=== PATIENT | female | born 1975 | race Caucasian/White ===

== ENCOUNTER 2020-03-19 13:11 | Outpatient (CLI) | payer BC, SELFPAY ==
--- NOTE | ~2020-03-19 | DEXA_ITS ---
BMD(1) Young-Adult(2) Age-Matched(3) Region (g/cm2) T-score Z-score WHO Classification L1 1.443 2.5 1.7 Normal L2 1.473 2.2 1.4 Normal L3 1.434 1.7 0.9 Normal L4 1.448 1.8 1.0 Normal L1-L4 1.450 2.1 1.3 Normal Trend: L1-L4 Change vs Change vs Measured Age BMD(1) Baseline Previous Date (years) (g/cm2) (%) (%) 03/19/2020 44.2 1.450 baseline - 1 - Statistically 68% of repeat scans fall within 1SD (+- 0.010 g/cm2 for AP Spine L1-L4) 2 - [place] (Combined NHANES (ages 20-30) / Biocontrol (ages 20-40)) AP Spine Reference Population (v112) 3 - Matched for Age, Weight (females 25-100 kg), Ethnic 11 - World Health Organization - Definition of Osteoporosis and Osteopenia for Women: Normal = T-score at or above -1.0 SD; Osteopenia = T-score between -1.0 and -2.5 SD; Osteoporosis = T-score at or below -2.5 SD; (WHO definitions only apply when a young healthy Women reference database is used to determine T-scores.) Printed: 03/19/2020 1:42:51 PM (13.60)76:3.00:50.00:12.0 0.00:9.78 0.60x1.05 24.9:%Fat=33.8% 0.00:0.00 0.00:0.00 Filename: [id number] Scan Mode: Standard;OneScan 37.0 Enish [id number] BMD(1) Young-Adult(2,7) Age-Matched(3) Region (g/cm2) T-score Z-score WHO Classification Neck Left 1.020 -0.1 -0.1 Normal Right 1.070 0.2 0.3 Normal Mean 1.045 0.1 0.1 Normal Difference 0.050 0.4 0.4 - Total Left 1.064 0.5 0.2 Normal Right 1.065 0.5 0.2 Normal Mean 1.065 0.5 0.2 Normal Difference 0.000 0.0 0.0 - Hip Qulin Length Comparison (mm) (Right = 112.1 mm) (Mean = 107.0 mm) (Left = 112.4 mm) Trend: Total Mean Change vs Change vs Measured Age BMD(1) Baseline Previous Date (years) (g/cm2) (%) (%) 03/19/2020 45.2 1.065 baseline - 1 - Statistically 68% of repeat scans fall within 1SD (+- 0.010 g/cm2 for DualFemur Total) 2 - [place] (Combined NHANES (ages 20-30) / Biocontrol (ages 20-40)) Femur Reference Population (v112) 3 - Matched for Age, Weight (females 25-100 kg), Ethnic 7 - DualFemur Total T-score difference is 0.0. Asymmetry is None. 11 - World Health Organization - Definition of Osteoporosis and Osteopenia for Women: Normal = T-score at or above -1.0 SD; Osteopenia = T-score between -1.0 and -2.5 SD; Osteoporosis = T-score at or below -2.5 SD; (WHO definitions only apply when a young healthy Women reference database is used to determine T-scores.) Printed: 03/19/2020 1:42:52 PM (13.60); Filename: [id number]; Right Femur; 20.2:%Fat=33.3%; Neck Angle (deg)= 58; Scan Mode: Standard 37.0 uGy; Left Femur; 20.1:%Fat=29.6%; Neck Angle (deg)= 60; Scan Mode: Standard 37.0 uGy [employer] [id number] Dear Juan Klein, Your patient Millie Oneill completed a BMD test on 03/19/2020 using the [employer] DXA System (analysis version: 13.60) manufactured by [employer]. The following summarizes the results of our evaluation. PATIENT BIOGRAPHICAL: Name: Millie Oneill Date: 1975 Height: 65.0 in. Gender: Female Exam Date: 03/19/2020 Weight:
== END 2020-03-19 13:12 | disposition home or self-care (01) ==
LOC: CHSIMG 13:14
PROVIDERS: PCP Family Medicine; Visit Provider Internal Medicine Rheumatology
DX: Z78.0 Asymptomatic menopausal state (principal)
CPT/HCPCS: 77080

== ENCOUNTER 2020-10-18 21:33 | Emergency (ER) | payer BC, SELFPAY ==
--- NOTE | ~2020-10-18 | XR_ITS ---
EXAMINATION: XR chest 2V DATE: 10/18/2020 22:10 INDICATION: Asthma presenting with shortness of breath TECHNIQUE: PA and lateral views of the chest were obtained. COMPARISON: None FINDINGS: The lungs are clear with no focal airspace opacities, pulmonary edema, pleural effusion or pneumothor ax. The cardiomediastinal silhouette is normal. Moderate thoracic spondylosis and mild kyphosis with minimal anterior wedging of a few mid thoracic vertebral bodies. IMPRESSION: 1. No acute cardiopulmonary disease. Reviewed, dictated and finalized at location A.
[2020-10-18 21:40] VITALS: BP 138/85; PULSE 106; RESP 20; TEMP 36.3; O2SAT 95
[2020-10-18 22:00] VITALS: PULSE 106; RESP 24; O2SAT 94
--- NOTE | 2020-10-18 22:04 | ED.ASTHMA ---
HPI - Asthma General Chief Complaint: Asthma Stated Complaint: URI Time Seen by Provider: 10/18/20 21:55 Source: patient Mode of arrival: ambulatory Limitations: no limitations History of Present Illness HPI Narrative: Patient comes in with mild shortness of breath. She has had no fever or chills. She states she has been vaccinated for COVID. She got a flu vaccine. She states she has had an increasing cough for the last 2 days. This has been hyperactive and nonproductive and wearing her how. She has used her nebulizer and then using horse her inhaler of albuterol more than normal. Because this has continued she comes in. Her inhaler at home did not help. She is scheduled to see Dr. Calzada on of next week MD complaint: shortness of breath Severity: moderate Context: none known Associated symptoms: dry cough Related Data Home Medications Medication Instructions Recorded Confirmed albuterol sulfate [Ventolin HFA] 2 puff INHALATION BID 10/18/20 10/18/20 citalopram 10 mg PO DAILY 10/18/20 10/18/20 folic acid 1 mg PO DAILY 10/18/20 10/18/20 methotrexate sodium 7.5 mg PO BID 10/18/20 10/18/20 montelukast 10 mg PO DAILY 10/18/20 10/18/20 omeprazole 20 mg PO DAILY 10/18/20 10/18/20 Allergies Allergy/AdvReac Type Severity Reaction Status Date / Time neomycin Allergy Unknown Verified 10/18/20 22:07 Review of Systems Constitutional: Constitutional: Reports no additional constitutional complaints Eyes: Eyes: Reports no additional eye complaints ENT: Reports system reviewed and no additional complaints, except as documented Cardiovascular: Cardiovascular: Reports no additional cardiovascular complaints Respiratory: Respiratory: Reports no additional respiratory complaints Gastrointestinal: Gastrointestinal: Reports no additional gastrointestinal complaints Genitourinary: Genitourinary: Reports no additional female genitourinary complaints Musculoskeletal: Musculoskeletal: Reports no additional musculoskeletal complaints Integumentary/Breasts: Skin/Breast: Reports system reviewed and no additional complaints, except as docu Neurologic: Reports system reviewed and no additional complaints, except as documented Psychiatric: Psychiatric: Reports no additional psychiatric complaints Endocrine: Endocrine: Reports no additional endocrine complaints Hematologic/Lymphatic: Hematologic/Lymphatic: Reports no additional hematologic/lymphatic complaints Allergic/Immunologic: Allergic/Immunologic: Reports no additional allergic/immunologic complaints PMFSH Past Medical History Medical History (Updated 10/19/20 @ 00:01 by Rafael Valiente) Asthma Surgical History Surgical History (Updated 10/18/20 @ 22:45 by Juan Torres MD) History of ankle surgery Family History Family History (Updated 10/18/20 @ 22:47 by Juan Torres MD) Father Malignant neoplasm of prostate Mother Asthma Breast cancer Cerebrovascular accident Social History Social History (Updated 10/18/20 @ 22:47 by Juan Torres MD) Smoking status: Never smoker Alcohol intake: never Living arrangements: with family Sexual Orientation (if Verbalized by the Patient): Straight or Heterosexual Exam Const: General: no acute distress HENMT: Head: normal to inspection Ears: external ears normal and TM's normal bilaterally General nose exam: Normal external nose present and Nasal discharge present (clear thin) Face and sinus: normal facial exam Mouth: Yes Normal oral and palatal mucosa present Throat: posterior oropharynx normal Eyes: Conjunctivae: conjunctivae normal Neck: Neck: normal visual inspection and no lymphadenopathy Chest: Chest palpation & inspection: normal inspection of the chest Resp: Effort & Inspection: normal respiratory effort Other: initially she had decreased breath sounds, she started moving much better air after she was given a nebulizer, and her lungs appeared clear. Cardio: Rate: re
[2020-10-18] MEDS: DEXAMETHASONE 4 MG TABLET 12 MG PO (22:12)
[2020-10-18] MEDS: BENZONATATE 100 MG CAPSULE 200 MG PO (22:12)
[2020-10-18] MEDS: IPRATROPIUM 0.5 MG/ALBUTEROL SULFATE 2.5 MG AMPUL.NEB 3 ML INHALATION (22:12)
[2020-10-18 22:23] VITALS: PULSE 98; RESP 20; O2SAT 94
[2020-10-18 22:40] VITALS: BP 128/75; PULSE 97; RESP 20; TEMP 36.1; O2SAT 94
== END 2020-10-18 22:45 | disposition home or self-care (01) ==
PROVIDERS: Emergency Provider Emergency Medicine; PCP Family Medicine
DX: J40 Bronchitis, not specified as acute or chronic (principal)
CPT/HCPCS: 71046; 73140; 94640; 99283; A9270; J8540

== ENCOUNTER 2021-07-29 08:14 | Outpatient (RCR) | payer BC, SELFPAY ==
[2021-07-29] MEDS: ACETAMINOPHEN 325 MG TABLET 650 MG PO (08:26)
[2021-07-29] MEDS: diphenhydrAMINE HCl CAP 25 MG CAPSULE PO (08:26)
[2021-07-29] MEDS: FAMOTIDINE 20 MG TABLET PO (08:27)
[2021-07-29 08:29] VITALS: BP 130/65; PULSE 63; TEMP 36.3; O2SAT 100
[2021-07-29 09:56] VITALS: BP 109/57; PULSE 62; O2SAT 100
== END 2021-07-29 17:00 ==
LOC: AMCINF 08:14
PROVIDERS: PCP Family Medicine; Referring Provider Family Medicine; Visit Provider Internal Medicine Hematology & Oncology
DX: U07.1 COVID-19 (principal); D84.9 Immunodeficiency, unspecified; J44.9 Chronic obstructive pulmonary disease, unspecified
CPT/HCPCS: A9270; M0247; Q0247

== ENCOUNTER 2021-09-24 01:04 | Day surgery (SDC) | payer BC, SELFPAY ==
[2021-07-31 14:03] VITALS: BMI 31.1
[2021-09-10 14:34] VITALS: BMI 33.0
[2021-09-24 06:20] VITALS: BP 115/89; PULSE 70; RESP 18; TEMP 36.9; O2SAT 99; BMI 32.2
--- NOTE | 2021-09-24 06:33 | WPDANESEPPF ---
Anes - Initial Pre Proc Eval Procedure: Operation Date: 09/24/21 07:30 Proposed Procedures p Screening Colonoscopy - Delvin Reardon DO Date/Time: 09/24/21 06:33 Surgeon: Delvin Reardon DO Pre Op Diagnosis: neoplasm screening Patient Data Age: 45 Gender: F Height: 1.65 m Weight: 90 kg Allergies Allergy/AdvReac Type Severity Reaction Status Date / Time neomycin Allergy Rash Verified 09/24/21 06:33 Home Medications Medication Instructions Recorded Confirmed Type albuterol sulfate [Ventolin HFA] 2 puff INHALATION BID 10/18/20 09/24/21 History citalopram 20 mg PO DAILY 10/18/20 09/24/21 History folic acid 1 mg PO DAILY 10/18/20 09/24/21 History methotrexate sodium 15 mg PO WEEKLY 10/18/20 09/24/21 History montelukast 10 mg PO DAILY 10/18/20 09/24/21 History omeprazole 20 mg PO DAILY 10/18/20 09/24/21 History Patient hx anesthesia problems: none Family hx anesthesia problems: none Results Review: All pre-operative results and documents have been reviewed as part of the pre-operative evaluation. [facility] Past Medical History Medical History (Updated 09/24/21 @ 06:33 by Avinash Salgado DO) Anxiety Asthma Surgical History Surgical History (System 07/27/21 @ 09:21 by Anat Berumen) History of ankle surgery Family History Family History (System 07/27/21 @ 09:21 by Anat Berumen) Father Malignant neoplasm of prostate Mother Asthma Breast cancer Cerebrovascular accident Social History Social History (System 07/27/21 @ 09:21 by Anat Berumen) Smoking status: Never smoker Alcohol intake: never Substance use: never Substance use type: does not use Living arrangements: with family Sexual Orientation (if Verbalized by the Patient): Straight or Heterosexual Spiritual care concerns: No Anes - Eval Final PreProcedure Day of Procedure 09/24/21 06:33 Patient weight: obese Heart: regular rate and rhythm Lungs: clear to auscultation and normal air movement Airway: Mallampati scale class II Neurological: alert and oriented Last oral intake: >/= 8 hours ASA classification: II Emergent: no Anesthetic plan: proceed Anesthesia type and monitoring: general GIVS Results Review: All pre-operative results and documents have been reviewed as part of the pre-operative evaluation. Informed Consent: The patient's anesthetic plan and its attendant risks and benefits were discussed with the patient/family/POA. Questions were solicited and answers provided to the satisfaction of the patient/family/POA.
[2021-09-24] MEDS: LACTATED RINGERS 1,000 ML 150 ML IV CONT (06:47)
--- NOTE | 2021-09-24 07:39 | PM.IMHP ---
H&P: HPI History of Present Illness Date/Time: 09/24/21 07:39 Chief Complaint: Screening for colorectal cancer Narrative: this is a 45-year-old woman who presents for colonoscopy. She has never had a colonoscopy before. She denies any hematochezia or melena. She denies any family history of colon cancer. Review of Systems Review of Systems: All systems reviewed & are unremarkable except as noted in HPI and below Constitutional: Constitutional: Denies chills, Denies fever(s), Denies headache(s) and Denies weight loss Eyes: Eyes: Denies change in vision ENT: Denies dizziness, Denies headache(s), Denies neck mass and Denies throat swelling Cardiovascular: Cardiovascular: Denies chest pain, Denies lightheadedness and Denies dyspnea Respiratory: Respiratory: Denies cough, Denies dyspnea and Denies wheezing Gastrointestinal: Gastrointestinal: Denies abdominal pain, Denies change in bowel habits, Denies nausea and Denies vomiting Genitourinary: Genitourinary: Denies hematuria and Denies dysuria Musculoskeletal: Musculoskeletal: Reports as per HPI Integumentary/Breasts: Skin/Breast: Reports as per HPI Neurologic: Denies dizziness and Denies headache(s) Allergic/Immunologic: Allergic/Immunologic: Denies throat swelling and Denies wheezing [facility] Past Medical History Medical History (Updated 09/24/21 @ 07:40 by Delvin Reardon DO) Anxiety Asthma Surgical History Surgical History (System 07/27/21 @ 09:21 by Anat Berumen) History of ankle surgery Family History Family History (System 07/27/21 @ 09:21 by Anat Berumen) Father Malignant neoplasm of prostate Mother Asthma Breast cancer Cerebrovascular accident Social History Social History (System 07/27/21 @ 09:21 by Anat Berumen) Smoking status: Never smoker Alcohol intake: never Substance use: never Substance use type: does not use Living arrangements: with family Sexual Orientation (if Verbalized by the Patient): Straight or Heterosexual Spiritual care concerns: No Meds Home Medications and Allergies Home Medications Medication Instructions Recorded Confirmed Type albuterol sulfate [Ventolin HFA] 2 puff INHALATION BID 10/18/20 09/24/21 History citalopram 20 mg PO DAILY 10/18/20 09/24/21 History folic acid 1 mg PO DAILY 10/18/20 09/24/21 History methotrexate sodium 15 mg PO WEEKLY 10/18/20 09/24/21 History montelukast 10 mg PO DAILY 10/18/20 09/24/21 History omeprazole 20 mg PO DAILY 10/18/20 09/24/21 History Allergies Allergy/AdvReac Type Severity Reaction Status Date / Time neomycin Allergy Rash Verified 09/24/21 06:33 Vital Signs Vital Signs - 24 hr 09/24/21 06:20 Temperature 36.9 C Pulse Rate 70 Respiratory Rate 18 Blood Pressure 115/89 Pulse Oximetry 99 Exam Const: General: no acute distress and alert Orientation/consciousness: patient oriented x3 HENMT: Head: normocephalic and atraumatic Ears: hearing grossly normal bilaterally General nose exam: Normal nares present Mouth: Yes Normal oral and palatal mucosa present Eyes: Periorbital: periorbital findings normal Sclera: sclerae normal EOM: EOMs intact bilaterally Neck: Neck: normal visual inspection, no lymphadenopathy and trachea midline Chest: Chest palpation & inspection: normal inspection of the chest Resp: Effort & Inspection: normal respiratory effort Auscultation: clear to auscultation bilaterally Cardio: Jugular venous distension: no JVD Rate: regular rate Rhythm: regular rhythm Heart sounds: S1 normal heart sound present and S2 normal heart sound present Peripheral pulses: Peripheral pulses 2+ throughout GI: Inspection: normal to inspection GI Palp: Yes Soft to palpation, No Tenderness to palpation present (GI), No Guarding due to palpation present (GI) and No Rebound tenderness present Percussion: Yes normal to percussion Auscultation: normal bowel sounds : General: Yes no CVA tenderness Back/Spine/Pelvis:
[2021-09-24 08:05] VITALS: BP 97/60; PULSE 57; RESP 16; O2SAT 97
[2021-09-24 08:15] VITALS: BP 101/73; PULSE 59; RESP 14; O2SAT 99
[2021-09-24 08:25] VITALS: BP 114/79; PULSE 59; RESP 18; O2SAT 97
== END 2021-09-24 09:05 | disposition home or self-care (01) ==
PROVIDERS: PCP Family Medicine; Visit Provider Surgery
PROC: 0DJD8ZZ Inspection of Lower Intestinal Tract, Via Natural or Artificial Opening Endoscopic (ICD-10-PCS; CPT 45378; principal; 2021-09-24 07:30)
DX: Z12.11 Encounter for screening for malignant neoplasm of colon (principal); J45.909 Unspecified asthma, uncomplicated; F41.9 Anxiety disorder, unspecified; Z79.51 Long term (current) use of inhaled steroids; E66.9 Obesity, unspecified; Z68.32 Body mass index [BMI] 32.0-32.9, adult
CPT/HCPCS: 45378; J2001; J2704; J7120

== ENCOUNTER 2021-10-16 11:13 | Outpatient (CLI) | payer BC, SELFPAY ==
--- NOTE | ~2021-10-16 | XR_ITS ---
EXAMINATION: XR chest 2V DATE: 10/16/2021 11:31 INDICATION: Cough TECHNIQUE: PA and lateral views of the chest are obtained. COMPARISON: 10/18/2020 FINDINGS: The lungs are free of acute opacities. There is no pleural effusion or pneumothorax. The ca rdiomediastinal silhouette is normal. There is moderate thoracic spondylosis. IMPRESSION: 1. No acute cardiopulmonary abnormality. Reviewed, dictated and finalized at location A.
== END 2021-10-16 11:14 | disposition home or self-care (01) ==
LOC: CHSIMG 11:15
PROVIDERS: PCP Family Medicine; Visit Provider Family Medicine
DX: R05.9 Cough, unspecified (principal)
CPT/HCPCS: 71046

== ENCOUNTER 2021-12-16 14:50 | Outpatient (CLI) | payer BC, SELFPAY ==
[2021-12-16 15:32] LABS: Eosinophils Absolute Auto 0.32 K/mm3 (0.02-0.50); Eosinophils Percent Auto 3.3 % (1.0-6.0); Hematocrit 37.6 % (35.0-49.0); Hemoglobin 12.6 g/dL (12.0-15.0); Immature Granulocyte Absolute 0.03 K/mm3 (0.00-0.00); Immature Granulocyte Percent A 0.3 % (0.0-0.0); Lymphocytes Absolute Auto 2.94 K/mm3 (1.10-4.50); Lymphocytes Percent Auto 29.9 % (18.0-42.0); Mean Corpuscular HGB Conc 33.5 g/dL (32.0-36.0); Mean Corpuscular Hemoglobin 29.1 pg (27.0-31.0); Mean Corpuscular Volume 86.8 fL (78.0-102.0); Mean Platelet Volume 9.8 fl (9.2-11.8); Monocytes Absolute Auto 0.47 K/mm3 (0.10-0.90); Monocytes Percent Auto 4.8 % (2.0-11.0); Neutrophils Percent Auto 60.7 % (50.0-70.0); Platelet Count Result 446 K/mm3 (150-420); Red Blood Count 4.33 M/mm3 (4.20-5.40); Red Cell Distribution Width 13.7 % (11.6-14.4); White Blood Count 9.8 K/mm3 (4.8-10.8)
[2021-12-16 15:46] LABS: Alanine Aminotransferase 33 U/L (14-59); Albumin Level 3.8 g/dL (3.4-5.0); Alkaline Phosphatase 70 U/L (46-116); Aspartate Amino Transferase 21 U/L (15-37); Bilirubin Direct 0.1 mg/dL (0-0.2); Bilirubin,Total 0.4 mg/dL (0.00-1.00); Total Protein 7.8 g/dL (6.4-8.2)
== END 2021-12-16 14:51 | disposition home or self-care (01) ==
LOC: CHSLAB 14:53
PROVIDERS: PCP Family Medicine
DX: Z51.81 Encounter for therapeutic drug level monitoring (principal); L12.1 Cicatricial pemphigoid
CPT/HCPCS: 36415; 80076; 85025

== ENCOUNTER 2022-09-30 09:07 | Outpatient (CLI) | payer BC, SELFPAY ==
--- NOTE | ~2022-09-30 | MR_ITS ---
EXAMINATION: MR brain/brain stem wo/w con DATE: 09/30/2022 10:08 INDICATION: Abnormalities of gait and mobility. TECHNIQUE: Magnetic resonance imaging (MRI) of the brain and brainstem was performed without and with 19 mL MultiHance intravenous contrast. COMPARISON: None. FINDINGS: There is no intracranial hemorrhage, acute infarction, or abnormal intracranial mass lesion . The ventricles are normal in size. The paranasal sinuses are clear. The mastoid air cells are emery l. The orbits are normal. IMPRESSION: 1. Normal brain. Reviewed, dictated and finalized at location A. IMPRESSION: 1. Normal brain.
== END 2022-09-30 09:08 | disposition home or self-care (01) ==
LOC: CHSIMG 09:08
PROVIDERS: PCP Family Medicine; Visit Provider Family Medicine
DX: R26.89 Other abnormalities of gait and mobility (principal)
CPT/HCPCS: 70553; A9577

== ENCOUNTER 2023-06-21 11:06 | Outpatient (CLI) | payer OTHER, SELFPAY ==
[2023-06-21 11:22] LABS: Basophils Absolute Auto 0.14 K/mm3 (0.00-0.10); Basophils Percent Auto 1.6 % (0.0-1.0); Eosinophils Absolute Auto 0.65 K/mm3 (0.02-0.50); Eosinophils Percent Auto 7.4 % (1.0-6.0); Hematocrit 38.9 % (35.0-49.0); Hemoglobin 13.1 g/dL (12.0-15.0); Immature Granulocyte Absolute 0.04 K/mm3 (0.00-0.00); Immature Granulocyte Percent A 0.5 % (0.0-0.0); Lymphocytes Percent Auto 20.5 % (18.0-42.0); Mean Corpuscular HGB Conc 33.7 g/dL (32.0-36.0); Mean Platelet Volume 8.9 fl (9.2-11.8); Monocytes Percent Auto 6.8 % (2.0-11.0); Neutrophils Absolute Auto 5.6 K/mm3 (1.7-7.2); Neutrophils Percent Auto 63.2 % (50.0-70.0); Platelet Count Result 484 K/mm3 (150-420); Red Blood Count 4.37 M/mm3 (4.20-5.40); Red Cell Distribution Width 14.4 % (11.6-14.4); White Blood Count 8.8 K/mm3 (4.8-10.8)
[2023-06-21 12:11] LABS: Alanine Aminotransferase 30 U/L (14-59); Albumin Level 3.6 g/dL (3.4-5.0); Alkaline Phosphatase 82 U/L (46-116); Anion Gap 5 mmol/L (8-16); Aspartate Amino Transferase 23 U/L (15-37); Bilirubin,Total 0.3 mg/dL (0.00-1.00); Blood Urea Nitrogen 8 mg/dL (7-18); Calcium 8.5 mg/dL (8.5-10.1); Carbon Dioxide 31 mmol/L (21-32); Chloride 103 mmol/L (98-108); Estimated Glomerular Filt Rate > 60; Glucose 95 mg/dL (70-99); Osmolality Calculated 286 mOsm/kg (285-295); Sodium 139 mmol/L (136-145); Total Protein 6.5 g/dL (6.4-8.2)
== END 2023-06-21 11:07 | disposition home or self-care (01) ==
LOC: CHSLAB 11:13
PROVIDERS: PCP Family Medicine
DX: L12.1 Cicatricial pemphigoid (principal); Z51.81 Encounter for therapeutic drug level monitoring
CPT/HCPCS: 36415; 80053; 85025

== ENCOUNTER 2024-05-02 11:11 | Outpatient (CLI) | payer SELFPAY ==
[2024-05-02 11:32] LABS: Basophils Absolute Auto 0.12 K/mm3 (0.00-0.10); Basophils Percent Auto 1.8 % (0.0-1.0); Eosinophils Absolute Auto 0.32 K/mm3 (0.02-0.50); Eosinophils Percent Auto 4.8 % (1.0-6.0); Hematocrit 38.4 % (35.0-49.0); Hemoglobin 13.4 g/dL (12.0-15.0); Immature Granulocyte Absolute 0.02 K/mm3 (0.00-0.00); Immature Granulocyte Percent A 0.3 % (0.0-0.0); Lymphocytes Absolute Auto 1.58 K/mm3 (1.10-4.50); Lymphocytes Percent Auto 23.8 % (18.0-42.0); Mean Corpuscular HGB Conc 34.9 g/dL (32-36); Mean Corpuscular Hemoglobin 30.7 pg (27.0-31.0); Mean Corpuscular Volume 87.9 fL (78.0-102.0); Mean Platelet Volume 9.2 fl (9.2-11.8); Monocytes Absolute Auto 0.48 K/mm3 (0.10-0.90); Monocytes Percent Auto 7.2 % (2.0-11.0); Neutrophils Absolute Auto 4.11 K/mm3 (1.70-7.20); Neutrophils Percent Auto 62.1 % (50.0-70.0); Platelet Count Result 462 K/mm3 (150-420); Red Blood Count 4.37 M/mm3 (4.20-5.40); Red Cell Distribution Width 14.3 % (11.6-14.4); White Blood Count 6.6 K/mm3 (4.8-10.8)
[2024-05-02 12:28] LABS: Alanine Aminotransferase 29 U/L (14-59); Albumin Level 3.5 g/dL (3.4-5.0); Alkaline Phosphatase 87 U/L (46-116); Anion Gap 11 mmol/L (4-12); Aspartate Amino Transferase 26 U/L (15-37); Bilirubin,Total 0.7 mg/dL (0.00-1.00); Blood Urea Nitrogen 12 mg/dL (7-18); Calcium 8.5 mg/dL (8.5-10.1); Carbon Dioxide 25 mmol/L (21-32); Chloride 107 mmol/L (98-108); Estimated Glomerular Filt Rate > 60; Glucose 96 mg/dL (70-99); Osmolality Calculated 295 mOsm/kg (285-295); Potassium 4.2 mmol/L (3.5-5.1); Sodium 143 mmol/L (136-145); Total Protein 6.5 g/dL (6.4-8.2)
== END 2024-05-02 11:12 | disposition home or self-care (01) ==
LOC: CHSLAB 11:16
PROVIDERS: PCP Family Medicine
DX: L12.1 Cicatricial pemphigoid (principal); Z51.81 Encounter for therapeutic drug level monitoring
CPT/HCPCS: 36415; 80053; 85025

== ENCOUNTER 2025-01-23 10:09 | Outpatient (CLI) | payer OTHER, SELFPAY ==
[2025-01-24 09:21] LABS: Hematocrit 39.7 % (35.0-49.0); Hemoglobin 13.4 g/dL (12.0-15.0); Immature Granulocyte Percent A 0.3 % (0.0-0.0); Lymphocytes Absolute Auto 2.29 K/mm3 (1.10-4.50); Mean Corpuscular HGB Conc 33.8 g/dL (32-36); Mean Corpuscular Hemoglobin 29.3 pg (27.0-31.0); Mean Corpuscular Volume 86.9 fL (78.0-102.0); Nucleated Red Blood Cells Absolute Auto 0.00 K/mm3 (0.00-0.00); Nucleated Red Blood Cells Perc 0.0 % (0-0.0); Platelet Count Result 479 K/mm3 (150-420); Red Blood Count 4.57 M/mm3 (4.20-5.40); White Blood Count 7.9 K/mm3 (4.8-10.8)
[2025-01-24 09:28] LABS: Alanine Aminotransferase 26 U/L (6-35); Albumin Level 4.1 g/dL (3.5-5.1); Alkaline Phosphatase 82 U/L (38-126); Anion Gap 6 mmol/L (4-12); Aspartate Amino Transferase 32 U/L (14-36); Bilirubin,Total 1.0 mg/dL (0.2-1.3); Blood Urea Nitrogen 13 mg/dL (7-17); Calcium 8.2 mg/dL (8.4-10.2); Carbon Dioxide 23 mmol/L (22-30); Chloride 108 mmol/L (98-107); Estimated Glomerular Filt Rate > 60; Glucose 97 mg/dL (65-110); Osmolality Calculated 284 mOsm/kg (285-295); Potassium 4.2 mmol/L (3.4-5.0); Sodium 137 mmol/L (137-145); Total Protein 6.6 g/dL (6.3-8.2)
== END 2025-01-23 10:10 | disposition home or self-care (01) ==
PROVIDERS: PCP Family Medicine
DX: L12.1 Cicatricial pemphigoid (principal); Z51.81 Encounter for therapeutic drug level monitoring
CPT/HCPCS: 36415; 80053; 85025